=== PATIENT | male | born 1960 | race Caucasian/White ===

== ENCOUNTER 2019-01-25 19:58 | Inpatient (IN) | payer MEDICAID ==
[~2019-01-25] VITALS: Ht 167.6 cm; Wt 73.0 kg
[2019-01-25] MEDS ORDERED: ONDANSETRON INJ 8 MG in DEXTROSE 5% 50 ML IVPB STA (20:12)
[2019-01-25] MEDS ORDERED: PANTOPRAZOLE IV 80 MG in SOD CHLORIDE 0.9% 100 ML IV STA (20:12)
[2019-01-25] MEDS ORDERED: PANTOPRAZOLE IV 80 MG in SOD CHLORIDE 0.9% 100 ML IVPB STA (20:12)
[2019-01-25] MEDS ORDERED: OCTREOTIDE 500 MCG in SOD CHLORIDE 0.9% 49 ML IV STA (20:12)
[2019-01-25] MEDS ORDERED: OCTREOTIDE 50 MCG in SOD CHLORIDE 0.9% 25 ML IVPB STA (20:12)
[2019-01-25] MEDS ORDERED: SOD CHLORIDE 0.9% 1,000 ML IV STA (20:12)
[2019-01-25] MEDS ORDERED: SOD CHLORIDE 0.9% 1,000 ML IV ONE (20:30)
[2019-01-25] MEDS ORDERED: PHYTONADIONE 10 MG in DEXTROSE 5% 50 ML IVPB ONE (21:30)
[2019-01-25] MEDS ORDERED: EVAC CONTAINER IV ONE (21:30)
[2019-01-25] MEDS ORDERED: HUMAN PROTHROMBIN COMPLX IV ONE (21:30)
[2019-01-25] MEDS ORDERED: BISACODYL (EC) 5 MG TAB PO PRN (22:30)
[2019-01-25] MEDS ORDERED: ONDANSETRON 4 MG INJ IV PRN (22:30)
[2019-01-25] MEDS ORDERED: DESFLURANE 15 MIN ONE (22:30)
[2019-01-25] MEDS ORDERED: DOCUSATE SODIUM 100 MG CAP PO PRN (22:30)
[2019-01-25] MEDS ORDERED: ALBUTEROL 0.083% (NEB) 2.5 MG/3 ML AMP NEB PRN (22:30)
[2019-01-25] MEDS ORDERED: THIAMINE 200 MG INJ IV SCH (22:30)
[2019-01-25] MEDS ORDERED: SUCCINYLCHOLINE CHLORIDE 100 MG/5 ML SYG IV ONE (22:45)
[2019-01-25] MEDS ORDERED: ETOMIDATE 20 MG INJ ONE (22:45)
[2019-01-25] MEDS ORDERED: FENTAnyl 50 MCG/ML VIAL ONE (22:45)
[2019-01-25] MEDS ORDERED: PROPOFOL 20 ML ONE (22:45)
[2019-01-25] MEDS ORDERED: ONDANSETRON 4 MG INJ ONE (22:46)
[2019-01-25 23:59] VITALS: RESP 14
[2019-01-26] VITALS (87 sets, daily range): BP systolic 88–153; BP diastolic 53–93; PULSE 93–139; RESP 14–41
[2019-01-26] MEDS: THIAMINE 500 MG in SOD CHLORIDE 0.9% 100 ML IV SCH ×4 (00:57→21:29)
[2019-01-26] MEDS: SOD CHLORIDE 0.9% 1,000 ML IV SCH ×3 (00:58→21:29)
[2019-01-26] MEDS ORDERED: FUROSEMIDE 20 MG INJ IV ONE (01:11)
[2019-01-26] MEDS: OCTREOTIDE 1 MG in DEXTROSE 5% 95 ML IV SCH ×2 (02:21→21:29)
[2019-01-26] MEDS: PANTOPRAZOLE IV 80 MG in SOD CHLORIDE 0.9% 100 ML IV SCH ×3 (05:10→17:26)
[2019-01-26] MEDS ORDERED: ETOMIDATE 20 MG INJ IV ONE (05:30)
[2019-01-26] MEDS ORDERED: ROCURONIUM BROMIDE 10 MG/ML VIAL IV ONE (05:30)
[2019-01-26] MEDS ORDERED: ROCURONIUM 50 MG INJ ONE (05:30)
[2019-01-26] MEDS ORDERED: ETOMIDATE 20 MG INJ ONE (05:30)
[2019-01-26] MEDS ORDERED: PHYTONADIONE 10 MG in DEXTROSE 5% 50 ML IVPB ONE (07:30)
[2019-01-26] MEDS: MIDAZOLAM (DRIP) 50 mg/50 mL 50 ML IV SCH ×2 (07:52→21:30)
[2019-01-26] MEDS: FENTAnyl (DRIP) 1000 mcg/100mL 100 ML IV SCH (13:49)
[2019-01-26] MEDS ORDERED: THIAMINE 500 MG in SOD CHLORIDE 0.9% 100 ML IV SCH (16:00)
[2019-01-26] MEDS ORDERED: FUROSEMIDE 40 MG INJ IV ONE (18:30)
[2019-01-26] MEDS: ALBUMIN HUMAN 25% 100 ML IV SCH (18:39)
[2019-01-27] VITALS (52 sets, daily range): BP systolic 101–153; BP diastolic 50–90; PULSE 75–101; RESP 15–22; Ht 167.6 cm; Wt 73.0 kg
[2019-01-27] MEDS: PANTOPRAZOLE IV 80 MG in SOD CHLORIDE 0.9% 100 ML IV SCH ×3 (01:43→19:05)
[2019-01-27] MEDS: ALBUMIN HUMAN 25% 100 ML IV SCH ×2 (01:44→11:33)
[2019-01-27] MEDS: THIAMINE 500 MG in SOD CHLORIDE 0.9% 100 ML IV SCH ×3 (05:14→21:20)
[2019-01-27] MEDS: FENTAnyl (DRIP) 1000 mcg/100mL 100 ML IV SCH ×2 (05:18→07:58)
[2019-01-27] MEDS ORDERED: MAGNESIUM SULFATE 1 GM/D5W 100 ML IVPB ONE (08:30)
[2019-01-27] MEDS: POTASSIUM CHLORIDE 50 ML IVPB SCH ×2 (10:10→12:06)
[2019-01-27] MEDS: MIDAZOLAM (DRIP) 50 mg/50 mL 50 ML IV SCH ×2 (12:05→23:51)
[2019-01-27] MEDS ORDERED: LIDOCAINE 1% (MPF) 5 ML VIAL ONE (15:38)
[2019-01-27] MEDS: POTASSIUM CHLORIDE 100 ML IVPB SCH ×3 (17:00→21:19)
[2019-01-27] MEDS ORDERED: MAGNESIUM SULFATE 2 GM/50 ML 50 ML IVPB ONE (17:00)
[2019-01-27] MEDS: OCTREOTIDE 1 MG in DEXTROSE 5% 95 ML IV SCH (17:07)
[2019-01-27] MEDS: SOD CHLORIDE 0.9% 1,000 ML IV SCH (17:07)
[2019-01-28] VITALS (54 sets, daily range): BP systolic 85–122; BP diastolic 50–78; PULSE 76–102; RESP 14–34
[2019-01-28] MEDS: THIAMINE 500 MG in SOD CHLORIDE 0.9% 100 ML IV SCH ×3 (05:17→21:45)
[2019-01-28] MEDS: MIDAZOLAM (DRIP) 50 mg/50 mL 50 ML IV SCH ×2 (06:29→19:13)
[2019-01-28] MEDS: SOD CHLORIDE 0.9% 1,000 ML IV SCH ×3 (07:38→21:43)
[2019-01-28] MEDS ORDERED: SOD CHLORIDE 0.9% IVPB ONE (08:00)
[2019-01-28] MEDS ORDERED: POTASSIUM PHOSPHATE IVPB ONE (08:00)
[2019-01-28] MEDS: PANTOPRAZOLE IV 80 MG in SOD CHLORIDE 0.9% 100 ML IV SCH ×2 (09:05→19:13)
[2019-01-28] MEDS: OCTREOTIDE 1 MG in DEXTROSE 5% 95 ML IV SCH (13:15)
[2019-01-28] MEDS: DEXTROSE 5%-0.45% NACL 1,000 ML IV SCH (20:00)
[2019-01-28] MEDS ORDERED: GLUCOSE GEL 15 GRAM TUBE BUCCAL PRN (20:30)
[2019-01-28] MEDS ORDERED: GLUCAGON 1 MG INJ IM PRN (20:30)
[2019-01-28] MEDS ORDERED: GLUCOSE GEL 15 GRAM TUBE PO PRN ×2 (20:30)
[2019-01-28] MEDS ORDERED: DEXTROSE 50% 50 ML SYRINGE IV PRN ×2 (20:30)
[2019-01-28] MEDS ORDERED: INSULIN ASPART [NOVOLOG] 3 ML PEN SC SCH (21:00)
[2019-01-28] MEDS: FENTAnyl (DRIP) 1000 mcg/100mL 100 ML IV SCH ×2 (21:49)
[2019-01-29] VITALS (34 sets, daily range): BP systolic 92–134; BP diastolic 50–69; PULSE 72–94; RESP 12–24
[2019-01-29] MEDS: INSULIN ASPART [NOVOLOG] 3 ML PEN SC SCH ×6 (01:00→21:14)
[2019-01-29] MEDS ORDERED: ACCU-CHEK XX SCH (02:00)
[2019-01-29] MEDS: MIDAZOLAM (DRIP) 50 mg/50 mL 50 ML IV SCH ×3 (03:06→18:36)
[2019-01-29] MEDS: PANTOPRAZOLE IV 80 MG in SOD CHLORIDE 0.9% 100 ML IV SCH ×3 (04:10→21:05)
[2019-01-29] MEDS: THIAMINE 500 MG in SOD CHLORIDE 0.9% 100 ML IV SCH ×4 (05:13→21:05)
[2019-01-29] MEDS: OCTREOTIDE 1 MG in DEXTROSE 5% 95 ML IV SCH ×2 (09:32→21:05)
[2019-01-29] MEDS: DEXTROSE 5%-0.45% NACL 1,000 ML IV SCH ×2 (10:04→14:56)
[2019-01-29] MEDS: FENTAnyl (DRIP) 1000 mcg/100mL 100 ML IV SCH (12:19)
[2019-01-29] MEDS: LORAZEPAM 2 MG INJ IV PRN (13:55)
[2019-01-30] VITALS (35 sets, daily range): BP systolic 94–121; BP diastolic 56–77; PULSE 74–96; RESP 5–20
[2019-01-30] MEDS: MIDAZOLAM (DRIP) 50 mg/50 mL 50 ML IV SCH ×5 (00:13→19:34)
[2019-01-30] MEDS: FENTAnyl (DRIP) 1000 mcg/100mL 100 ML IV SCH ×3 (00:18→17:44)
[2019-01-30] MEDS: INSULIN ASPART [NOVOLOG] 3 ML PEN SC SCH ×6 (00:59→21:00)
[2019-01-30] MEDS: THIAMINE 500 MG in SOD CHLORIDE 0.9% 100 ML IV SCH ×3 (05:05→21:00)
[2019-01-30] MEDS: DEXTROSE 5%-0.45% NACL 1,000 ML IV SCH ×3 (05:05→20:59)
[2019-01-30] MEDS: PANTOPRAZOLE IV 80 MG in SOD CHLORIDE 0.9% 100 ML IV SCH (06:07)
[2019-01-30] MEDS ORDERED: ALBUMIN HUMAN 25% 100 ML IV ONE (15:30)
[2019-01-30] MEDS ORDERED: FUROSEMIDE 40 MG INJ IV ONE (15:30)
[2019-01-30] MEDS: PANTOPRAZOLE 40 MG INJ IV SCH (17:44)
[2019-01-31] VITALS (38 sets, daily range): BP systolic 80–121; BP diastolic 51–74; PULSE 54–85; RESP 14–19
[2019-01-31] MEDS: INSULIN ASPART [NOVOLOG] 3 ML PEN SC SCH ×6 (01:00→20:09)
[2019-01-31] MEDS: MIDAZOLAM (DRIP) 50 mg/50 mL 50 ML IV SCH ×3 (01:12→10:25)
[2019-01-31] MEDS: FENTAnyl (DRIP) 1000 mcg/100mL 100 ML IV SCH ×2 (04:55→17:03)
[2019-01-31] MEDS: PANTOPRAZOLE 40 MG INJ IV SCH ×2 (05:21→17:05)
[2019-01-31] MEDS: THIAMINE 500 MG in SOD CHLORIDE 0.9% 100 ML IV SCH ×3 (05:21→21:43)
[2019-01-31] MEDS: DEXMEDETOMIDINE IN DEXTROSE 5% 50 ML IV SCH ×2 (10:42→17:05)
[2019-01-31] MEDS ORDERED: MAGNESIUM SULFATE 3 GM in DEXTROSE 5% 100 ML IVPB ONE (11:00)
[2019-01-31] MEDS: POTASSIUM CHLORIDE 100 ML IVPB SCH ×2 (12:25→14:53)
[2019-01-31] MEDS ORDERED: LIDOCAINE 1% (MPF) 5 ML VIAL ONE (14:35)
[2019-01-31] MEDS ORDERED: ALBUMIN HUMAN 5% 250 ML IV ONE ×2 (16:30→19:00)
[2019-01-31] MEDS: DEXTROSE 5%-0.45% NACL 1,000 ML IV SCH (19:47)
[2019-01-31] MEDS ORDERED: ALBUMIN HUMAN 25% 100 ML ONE (20:50)
[2019-01-31] MEDS ORDERED: ALBUMIN HUMAN 25% 100 ML IV ONE (21:00)
[2019-01-31] MEDS ORDERED: SOD CHLORIDE 0.9% 250 ML IV ONE (21:00)
[2019-02-01] VITALS (46 sets, daily range): BP systolic 70–116; BP diastolic 49–70; PULSE 57–90; RESP 14–20
[2019-02-01] MEDS: INSULIN ASPART [NOVOLOG] 3 ML PEN SC SCH ×2 (01:00→04:30)
[2019-02-01] MEDS: THIAMINE 500 MG in SOD CHLORIDE 0.9% 100 ML IV SCH ×3 (05:06→21:43)
[2019-02-01] MEDS: PANTOPRAZOLE 40 MG INJ IV SCH ×2 (05:06→18:51)
[2019-02-01] MEDS ORDERED: ALBUMIN HUMAN 25% 100 ML ONE (06:51)
[2019-02-01] MEDS ORDERED: ALBUMIN HUMAN 25% 100 ML IV ONE (07:00)
[2019-02-01] MEDS ORDERED: NORepinephrine 8MG/250 ML (PMX 250 ML IV SCH (07:30)
[2019-02-01] MEDS ORDERED: SOD CHLORIDE 0.9% 1,000 ML IV ONE (10:30)
[2019-02-01] MEDS: DEXMEDETOMIDINE IN DEXTROSE 5% 50 ML IV SCH (18:59)
[2019-02-02] VITALS (38 sets, daily range): BP systolic 82–131; BP diastolic 54–83; PULSE 59–114; RESP 14–39
[2019-02-02] MEDS: FENTAnyl (DRIP) 1000 mcg/100mL 100 ML IV SCH ×2 (02:34→22:18)
[2019-02-02] MEDS: PANTOPRAZOLE 40 MG INJ IV SCH ×2 (05:18→17:06)
[2019-02-02] MEDS: THIAMINE 500 MG in SOD CHLORIDE 0.9% 100 ML IV SCH (05:21)
[2019-02-02] MEDS: DEXMEDETOMIDINE IN DEXTROSE 5% 50 ML IV SCH ×2 (17:07→22:07)
[2019-02-02] MEDS: LORAZEPAM 2 MG INJ IV PRN (18:51)
[2019-02-02] MEDS: DEXTROSE 5%-0.45% NACL 1,000 ML IV SCH (20:07)
[2019-02-03] VITALS (30 sets, daily range): BP systolic 91–169; BP diastolic 55–82; PULSE 54–138; RESP 14–38
[2019-02-03] MEDS: DEXMEDETOMIDINE IN DEXTROSE 5% 50 ML IV SCH (01:13)
[2019-02-03] MEDS: PANTOPRAZOLE 40 MG INJ IV SCH ×2 (06:11→17:32)
[2019-02-03] MEDS ORDERED: MAGNESIUM SULFATE 2 GM/50 ML 50 ML ONE (06:18)
[2019-02-03] MEDS ORDERED: MAGNESIUM SULFATE 2 GM/50 ML 50 ML IVPB ONE (06:30)
[2019-02-03] MEDS ORDERED: FUROSEMIDE 40 MG INJ IV ONE (10:30)
[2019-02-03] MEDS: LEVALBUTEROL (NEB) 0.63 MG/3 ML AMP HHN SCH ×3 (11:15→20:30)
[2019-02-03] MEDS: DEXTROSE 5%-0.45% NACL 1,000 ML IV SCH ×2 (12:00→21:40)
[2019-02-03] MEDS: PHYTONADIONE 10 MG in DEXTROSE 5% 50 ML IVPB SCH (12:28)
[2019-02-03] MEDS: LACTULOSE ENEMA 1,000 ML BTL PR SCH ×2 (12:30→17:30)
[2019-02-03] MEDS: IPRATROPIUM (NEB) 0.5 MG/2.5 ML AMP HHN SCH ×2 (15:15→20:30)
[2019-02-03] MEDS: PIPER-TAZO 3.375 GM IV (PMX) 100 ML IVPB SCH ×2 (17:32→23:48)
[2019-02-03] MEDS ORDERED: FUROSEMIDE 20 MG INJ IV ONE (21:00)
[2019-02-04] VITALS (53 sets, daily range): BP systolic 109–163; BP diastolic 56–105; PULSE 86–127; RESP 19–50
[2019-02-04] MEDS ORDERED: ACETAMINOPHEN 1000MG/100ML IV 100 ML IVPB ONE
[2019-02-04] MEDS: LACTULOSE ENEMA 1,000 ML BTL PR SCH ×5 (00:38→23:26)
[2019-02-04] MEDS: LEVALBUTEROL (NEB) 0.63 MG/3 ML AMP HHN SCH ×4 (02:51→19:25)
[2019-02-04] MEDS: PIPER-TAZO 3.375 GM IV (PMX) 100 ML IVPB SCH ×4 (06:08→23:24)
[2019-02-04] MEDS: PANTOPRAZOLE 40 MG INJ IV SCH ×2 (06:08→17:22)
[2019-02-04] MEDS: IPRATROPIUM (NEB) 0.5 MG/2.5 ML AMP HHN SCH ×3 (07:28→19:25)
[2019-02-04] MEDS: POTASSIUM CHLORIDE 100 ML IVPB SCH ×4 (09:13→17:23)
[2019-02-04] MEDS: PHYTONADIONE 10 MG in DEXTROSE 5% 50 ML IVPB SCH (09:13)
[2019-02-04] MEDS ORDERED: MAGNESIUM SULFATE 4 GM/100 ML 100 ML IVPB ONE (12:00)
[2019-02-04] MEDS: LORAZEPAM 2 MG INJ IV PRN (18:20)
[2019-02-04] MEDS ORDERED: FUROSEMIDE 40 MG INJ IV ONE (18:30)
[2019-02-04] MEDS: LEVETIRACETAM 1000 MG (PMX) 100 ML IVPB SCH (18:32)
[2019-02-04] MEDS ORDERED: LORAZEPAM 2 MG INJ IV PRN (23:00)
[2019-02-04] MEDS: DEXTROSE 5%-0.45% NACL 1,000 ML IV SCH (23:24)
[2019-02-05] VITALS (46 sets, daily range): BP systolic 120–164; BP diastolic 66–93; PULSE 108–120; RESP 23–58
[2019-02-05] MEDS: LEVALBUTEROL (NEB) 0.63 MG/3 ML AMP HHN SCH ×4 (02:03→19:17)
[2019-02-05] MEDS: PIPER-TAZO 3.375 GM IV (PMX) 100 ML IVPB SCH ×4 (06:06→23:29)
[2019-02-05] MEDS: PANTOPRAZOLE 40 MG INJ IV SCH ×2 (06:06→17:32)
[2019-02-05] MEDS: LACTULOSE ENEMA 1,000 ML BTL PR SCH ×3 (06:06→22:47)
[2019-02-05] MEDS: LEVETIRACETAM 1000 MG (PMX) 100 ML IVPB SCH ×2 (06:42→17:33)
[2019-02-05] MEDS: POTASSIUM CHLORIDE 50 ML IVPB SCH ×3 (07:40→11:23)
[2019-02-05] MEDS: IPRATROPIUM (NEB) 0.5 MG/2.5 ML AMP HHN SCH ×3 (08:22→19:17)
[2019-02-05] MEDS: PHYTONADIONE 10 MG in DEXTROSE 5% 50 ML IVPB SCH (08:39)
[2019-02-05] MEDS: DEXTROSE 5%-0.45% NACL 1,000 ML IV SCH (17:35)
[2019-02-06] VITALS (42 sets, daily range): BP systolic 82–167; BP diastolic 51–85; PULSE 85–129; RESP 16–47
[2019-02-06] MEDS: LEVALBUTEROL (NEB) 0.63 MG/3 ML AMP HHN SCH ×2 (01:28→08:00)
[2019-02-06] MEDS: LORAZEPAM 2 MG INJ IV PRN (01:58)
[2019-02-06] MEDS: PIPER-TAZO 3.375 GM IV (PMX) 100 ML IVPB SCH ×3 (05:30→17:24)
[2019-02-06] MEDS: LACTULOSE ENEMA 1,000 ML BTL PR SCH ×2 (05:31→13:49)
[2019-02-06] MEDS: PANTOPRAZOLE 40 MG INJ IV SCH ×2 (05:31→17:24)
[2019-02-06] MEDS: PROPOFOL 100 ML IV SCH ×3 (05:52→20:05)
[2019-02-06] MEDS: LEVETIRACETAM 1000 MG (PMX) 100 ML IVPB SCH ×2 (06:21→17:24)
[2019-02-06] MEDS: PHYTONADIONE 10 MG in DEXTROSE 5% 50 ML IVPB SCH (07:45)
[2019-02-06] MEDS: IPRATROPIUM (NEB) 0.5 MG/2.5 ML AMP HHN SCH (08:00)
[2019-02-06] MEDS: LEVALBUTEROL (HFA) 15 GM INHALER INH SCH ×2 (13:19→19:15)
[2019-02-06] MEDS: IPRATROPIUM (HFA) 12.9 GM INHALER INH SCH ×2 (13:20→19:15)
[2019-02-07] VITALS (59 sets, daily range): BP systolic 81–115; BP diastolic 45–63; PULSE 74–98; RESP 15–27
[2019-02-07] MEDS: PIPER-TAZO 3.375 GM IV (PMX) 100 ML IVPB SCH ×4 (00:20→17:17)
[2019-02-07] MEDS: LACTULOSE ENEMA 1,000 ML BTL PR SCH ×4 (00:41→17:19)
[2019-02-07] MEDS: IPRATROPIUM (HFA) 12.9 GM INHALER INH SCH ×4 (01:27→19:12)
[2019-02-07] MEDS: LEVALBUTEROL (HFA) 15 GM INHALER INH SCH ×4 (01:27→19:11)
[2019-02-07] MEDS: PANTOPRAZOLE 40 MG INJ IV SCH ×2 (05:40→17:17)
[2019-02-07] MEDS: LEVETIRACETAM 1000 MG (PMX) 100 ML IVPB SCH ×2 (05:40→18:03)
[2019-02-07] MEDS: PROPOFOL 100 ML IV SCH ×2 (05:41→15:43)
[2019-02-07] MEDS: POTASSIUM CHLORIDE 100 ML IVPB SCH ×3 (08:38→15:23)
[2019-02-07] MEDS ORDERED: FUROSEMIDE 40 MG INJ IV ONE (15:30)
[2019-02-07] MEDS: ALBUMIN HUMAN 25% 100 ML IV SCH (15:44)
[2019-02-08] VITALS (57 sets, daily range): BP systolic 73–115; BP diastolic 39–73; PULSE 53–93; RESP 15–25
[2019-02-08] MEDS: PIPER-TAZO 3.375 GM IV (PMX) 100 ML IVPB SCH ×5 (00:22→23:39)
[2019-02-08] MEDS: ALBUMIN HUMAN 25% 100 ML IV SCH ×2 (00:22→08:11)
[2019-02-08] MEDS: LACTULOSE ENEMA 1,000 ML BTL PR SCH ×3 (00:22→11:25)
[2019-02-08] MEDS: IPRATROPIUM (HFA) 12.9 GM INHALER INH SCH ×4 (01:29→19:17)
[2019-02-08] MEDS: LEVALBUTEROL (HFA) 15 GM INHALER INH SCH ×4 (01:29→19:17)
[2019-02-08] MEDS: PROPOFOL 100 ML IV SCH (03:31)
[2019-02-08] MEDS: PANTOPRAZOLE 40 MG INJ IV SCH ×2 (05:30→17:04)
[2019-02-08] MEDS ORDERED: POTASSIUM CHLORIDE 50 ML ONE (05:49)
[2019-02-08] MEDS: LEVETIRACETAM 1000 MG (PMX) 100 ML IVPB SCH ×2 (05:56→17:28)
[2019-02-08] MEDS ORDERED: POTASSIUM CHLORIDE 100 ML IVPB SCH (06:00)
[2019-02-08] MEDS: POTASSIUM CHLORIDE 50 ML IVPB SCH ×3 (06:24→10:44)
[2019-02-08] MEDS: DEXMEDETOMIDINE IN DEXTROSE 5% 50 ML IV SCH ×5 (09:14→23:39)
[2019-02-08] MEDS ORDERED: POTASSIUM PHOSPHATE 20 MEQ in SOD CHLORIDE 0.9% 250 ML IVPB ONE (10:30)
[2019-02-08] MEDS: LACTULOSE 30ML CUP NGT SCH ×3 (11:58→23:39)
[2019-02-08] MEDS ORDERED: FUROSEMIDE 40 MG INJ IV ONE (14:00)
[2019-02-08] MEDS ORDERED: ALBUMIN HUMAN 25% 100 ML IV ONE (14:00)
[2019-02-08] MEDS: POTASSIUM CHLORIDE 100 ML IVPB SCH ×2 (15:17→17:01)
[2019-02-08] MEDS: RIFAXIMIN 550 MG TAB NGT SCH (20:17)
[2019-02-08] MEDS: LORAZEPAM 2 MG INJ IV PRN (20:34)
[2019-02-08] MEDS ORDERED: SOD CHLORIDE 0.9% 1,000 ML IV ONE (22:30)
[2019-02-08] MEDS ORDERED: SOD CHLORIDE 0.9% 500 ML IV ONE (22:30)
[2019-02-09] VITALS (99 sets, daily range): BP systolic 68–172; BP diastolic 34–146; PULSE 44–97; RESP 18–32
[2019-02-09] MEDS ORDERED: SOD CHLORIDE 0.9% 1,000 ML IV ONE (01:00)
[2019-02-09] MEDS: LEVALBUTEROL (HFA) 15 GM INHALER INH SCH ×4 (01:31→19:09)
[2019-02-09] MEDS: IPRATROPIUM (HFA) 12.9 GM INHALER INH SCH ×4 (01:31→19:08)
[2019-02-09] MEDS ORDERED: NORepinephrine 8MG/250 ML (PMX 250 ML IV SCH (02:30)
[2019-02-09] MEDS ORDERED: DOPamine-D5W 1.6 MG/ML 250 ML IV SCH (03:00)
[2019-02-09] MEDS: PANTOPRAZOLE 40 MG INJ IV SCH ×2 (05:25→17:06)
[2019-02-09] MEDS: PIPER-TAZO 3.375 GM IV (PMX) 100 ML IVPB SCH ×3 (05:25→17:06)
[2019-02-09] MEDS: LACTULOSE 30ML CUP NGT SCH ×4 (05:27→21:14)
[2019-02-09] MEDS: LEVETIRACETAM 1000 MG (PMX) 100 ML IVPB SCH ×2 (06:06→17:06)
[2019-02-09] MEDS: RIFAXIMIN 550 MG TAB NGT SCH ×2 (09:00→16:02)
[2019-02-09] MEDS: POTASSIUM CHLORIDE 40 MEQ in DEXTROSE 5% 1,000 ML IV SCH (10:15)
[2019-02-09] MEDS: MIDAZOLAM 100 MG in SOD CHLORIDE 0.9% 80 ML IV SCH (10:19)
[2019-02-09] MEDS ORDERED: PHYTONADIONE 10 MG in DEXTROSE 5% 50 ML IVPB ONE (11:30)
[2019-02-09] MEDS ORDERED: LIDOCAINE 1% (MPF) 5 ML VIAL ONE (12:49)
[2019-02-09] MEDS ORDERED: FUROSEMIDE 40 MG INJ IV ONE (13:00)
[2019-02-09] MEDS ORDERED: ALBUMIN HUMAN 25% 100 ML IV ONE (13:00)
[2019-02-09] MEDS ORDERED: MAGNESIUM SULFATE 2 GM/50 ML 50 ML IVPB ONE (14:30)
[2019-02-09] MEDS ORDERED: POTASSIUM CHLORIDE 20 MEQ POWDER FOR ORAL SOLN PO PRN ×2 (15:30)
[2019-02-09] MEDS: POTASSIUM CHLORIDE 20 MEQ POWDER FOR ORAL SOLN PO PRN (16:02)
[2019-02-09] MEDS ORDERED: LACTULOSE 30ML CUP NGT SCH (22:00)
[2019-02-10] VITALS (52 sets, daily range): BP systolic 82–115; BP diastolic 43–66; PULSE 72–85; RESP 18–38
[2019-02-10] MEDS: PIPER-TAZO 3.375 GM IV (PMX) 100 ML IVPB SCH ×2 (00:28→05:22)
[2019-02-10] MEDS: LEVALBUTEROL (HFA) 15 GM INHALER INH SCH ×4 (01:00→20:28)
[2019-02-10] MEDS: IPRATROPIUM (HFA) 12.9 GM INHALER INH SCH ×4 (01:00→20:28)
[2019-02-10] MEDS: LACTULOSE 30ML CUP NGT SCH ×3 (05:22→21:32)
[2019-02-10] MEDS: PANTOPRAZOLE 40 MG INJ IV SCH ×2 (05:22→17:49)
[2019-02-10] MEDS: LEVETIRACETAM 1000 MG (PMX) 100 ML IVPB SCH ×2 (05:31→17:49)
[2019-02-10] MEDS: POTASSIUM CHLORIDE 40 MEQ in DEXTROSE 5% 1,000 ML IV SCH (06:19)
[2019-02-10] MEDS ORDERED: ALBUMIN HUMAN 25% 100 ML IV ONE (08:30)
[2019-02-10] MEDS ORDERED: FUROSEMIDE 40 MG INJ IV ONE (08:30)
[2019-02-10] MEDS: RIFAXIMIN 550 MG TAB NGT SCH ×2 (09:51→21:32)
[2019-02-10] MEDS: SPIRONOLACTONE 50 MG TAB NGT SCH (16:12)
[2019-02-10] MEDS: MIDAZOLAM 100 MG in SOD CHLORIDE 0.9% 80 ML IV SCH (17:39)
[2019-02-11] VITALS (40 sets, daily range): BP systolic 81–118; BP diastolic 47–71; PULSE 68–99; RESP 17–26
[2019-02-11] MEDS: LEVALBUTEROL (HFA) 15 GM INHALER INH SCH ×4 (01:27→19:10)
[2019-02-11] MEDS: IPRATROPIUM (HFA) 12.9 GM INHALER INH SCH ×4 (01:28→19:10)
[2019-02-11] MEDS: LEVETIRACETAM 1000 MG (PMX) 100 ML IVPB SCH ×2 (05:49→18:21)
[2019-02-11] MEDS: PANTOPRAZOLE 40 MG INJ IV SCH ×2 (05:49→18:21)
[2019-02-11] MEDS: LACTULOSE 30ML CUP NGT SCH ×2 (05:49→22:10)
[2019-02-11] MEDS: POTASSIUM CHLORIDE 20 MEQ POWDER FOR ORAL SOLN PO PRN ×2 (06:31→08:49)
[2019-02-11] MEDS ORDERED: MAGNESIUM SULFATE 2 GM/50 ML 50 ML IVPB ONE (08:30)
[2019-02-11] MEDS ORDERED: POTASSIUM PHOSPHATE 30 MM in SOD CHLORIDE 0.9% 250 ML IVPB ONE (08:30)
[2019-02-11] MEDS: FUROSEMIDE 20 MG TAB NGT SCH (08:49)
[2019-02-11] MEDS: RIFAXIMIN 550 MG TAB NGT SCH ×2 (08:50→20:50)
[2019-02-11] MEDS: SPIRONOLACTONE 50 MG TAB NGT SCH (08:50)
[2019-02-11] MEDS: BALSAM PERU/CASTOR OIL 60 GM TUBE TOP SCH (09:08)
[2019-02-11] MEDS ORDERED: POTASSIUM CHLORIDE 40 MEQ in DEXTROSE 5% 1,000 ML IV SCH (10:00)
[2019-02-11] MEDS ORDERED: ALBUMIN HUMAN 25% 100 ML ONE (15:10)
[2019-02-11] MEDS ORDERED: ALBUMIN HUMAN 25% 100 ML IV ONE (15:30)
[2019-02-12] VITALS (38 sets, daily range): BP systolic 90–130; BP diastolic 59–77; PULSE 79–99; RESP 19–27
[2019-02-12] MEDS: IPRATROPIUM (HFA) 12.9 GM INHALER INH SCH ×4 (01:36→19:32)
[2019-02-12] MEDS: LEVALBUTEROL (HFA) 15 GM INHALER INH SCH ×4 (01:36→19:32)
[2019-02-12] MEDS: PANTOPRAZOLE 40 MG INJ IV SCH ×2 (06:08→17:31)
[2019-02-12] MEDS: LEVETIRACETAM 1000 MG (PMX) 100 ML IVPB SCH ×2 (06:09→17:31)
[2019-02-12] MEDS: LACTULOSE 30ML CUP NGT SCH ×3 (06:09→22:09)
[2019-02-12] MEDS: RIFAXIMIN 550 MG TAB NGT SCH ×2 (08:41→20:18)
[2019-02-12] MEDS: FUROSEMIDE 20 MG TAB NGT SCH (08:41)
[2019-02-12] MEDS: SPIRONOLACTONE 50 MG TAB NGT SCH (08:41)
[2019-02-12] MEDS: BALSAM PERU/CASTOR OIL 60 GM TUBE TOP SCH (08:42)
[2019-02-12] MEDS ORDERED: INSULIN REGULAR, HUMAN 100 UNIT/1 ML 3ML VIAL IVP STA (08:44)
[2019-02-12] MEDS ORDERED: DEXTROSE 50% 50 ML SYRINGE IV PRN (09:00)
[2019-02-12] MEDS: MIDAZOLAM 100 MG in SOD CHLORIDE 0.9% 80 ML IV SCH ×2 (10:37→23:14)
[2019-02-13] VITALS (59 sets, daily range): BP systolic 82–141; BP diastolic 45–79; PULSE 77–110; RESP 15–27
[2019-02-13] MEDS: IPRATROPIUM (HFA) 12.9 GM INHALER INH SCH ×4 (01:43→19:18)
[2019-02-13] MEDS: LEVALBUTEROL (HFA) 15 GM INHALER INH SCH ×4 (01:43→19:18)
[2019-02-13] MEDS: PANTOPRAZOLE 40 MG INJ IV SCH ×2 (06:09→17:09)
[2019-02-13] MEDS: LEVETIRACETAM 1000 MG (PMX) 100 ML IVPB SCH ×2 (06:09→18:09)
[2019-02-13] MEDS: LACTULOSE 30ML CUP NGT SCH ×3 (06:09→21:00)
[2019-02-13] MEDS: RIFAXIMIN 550 MG TAB NGT SCH ×2 (08:39→20:50)
[2019-02-13] MEDS: SPIRONOLACTONE 50 MG TAB NGT SCH (08:39)
[2019-02-13] MEDS: DEXTROSE 5% 1,000 ML IV SCH (08:40)
[2019-02-13] MEDS: FUROSEMIDE 20 MG TAB NGT SCH (08:40)
[2019-02-13] MEDS: BALSAM PERU/CASTOR OIL 60 GM TUBE TOP SCH (08:40)
[2019-02-13] MEDS: MIDAZOLAM 100 MG in SOD CHLORIDE 0.9% 80 ML IV SCH (11:04)
[2019-02-13] MEDS ORDERED: DEXMEDETOMIDINE IN DEXTROSE 5% 50 ML IV SCH (11:30)
[2019-02-13] MEDS: DEXMEDETOMIDINE IN DEXTROSE 5% 50 ML IV SCH ×3 (14:01→21:00)
[2019-02-14] VITALS (57 sets, daily range): BP systolic 81–122; BP diastolic 45–77; PULSE 66–89; RESP 20–31
[2019-02-14] MEDS: LEVALBUTEROL (HFA) 15 GM INHALER INH SCH ×4 (01:11→19:26)
[2019-02-14] MEDS: IPRATROPIUM (HFA) 12.9 GM INHALER INH SCH ×4 (01:11→19:26)
[2019-02-14] MEDS: DEXMEDETOMIDINE IN DEXTROSE 5% 50 ML IV SCH ×4 (03:34→23:47)
[2019-02-14] MEDS: DEXTROSE 5% 1,000 ML IV SCH (03:38)
[2019-02-14] MEDS: LACTULOSE 30ML CUP NGT SCH ×3 (05:09→22:09)
[2019-02-14] MEDS: PANTOPRAZOLE 40 MG INJ IV SCH ×2 (05:09→18:20)
[2019-02-14] MEDS: LEVETIRACETAM 1000 MG (PMX) 100 ML IVPB SCH ×2 (05:09→18:20)
[2019-02-14] MEDS: FUROSEMIDE 20 MG TAB NGT SCH (09:00)
[2019-02-14] MEDS ORDERED: SOD CHLORIDE 0.9% 250 ML IV* ONE (09:08)
[2019-02-14] MEDS ORDERED: ALBUMIN HUMAN 25% 100 ML IV PRN (09:30)
[2019-02-14] MEDS: BALSAM PERU/CASTOR OIL 60 GM TUBE TOP SCH (09:46)
[2019-02-14] MEDS: RIFAXIMIN 550 MG TAB NGT SCH ×2 (09:46→22:09)
[2019-02-14] MEDS: SPIRONOLACTONE 50 MG TAB NGT SCH (09:46)
[2019-02-14] MEDS ORDERED: POTASSIUM CHLORIDE 20 MEQ POWDER FOR ORAL SOLN GTB ONE (10:00)
[2019-02-14] MEDS ORDERED: LIDOCAINE 1% (MPF) 5 ML VIAL ONE (13:56)
[2019-02-15] VITALS (50 sets, daily range): BP systolic 85–126; BP diastolic 58–79; PULSE 54–117; RESP 18–37
[2019-02-15] MEDS: IPRATROPIUM (HFA) 12.9 GM INHALER INH SCH ×4 (02:00→20:00)
[2019-02-15] MEDS: LEVALBUTEROL (HFA) 15 GM INHALER INH SCH ×4 (02:00→20:00)
[2019-02-15] MEDS: DEXTROSE 5% 1,000 ML IV SCH ×2 (03:12→21:06)
[2019-02-15] MEDS: DEXMEDETOMIDINE IN DEXTROSE 5% 50 ML IV SCH ×2 (03:55→12:18)
[2019-02-15] MEDS: PANTOPRAZOLE 40 MG INJ IV SCH (05:56)
[2019-02-15] MEDS: LACTULOSE 30ML CUP NGT SCH ×3 (05:56→22:00)
[2019-02-15] MEDS: LEVETIRACETAM 1000 MG (PMX) 100 ML IVPB SCH ×2 (05:57→18:31)
[2019-02-15] MEDS: SPIRONOLACTONE 50 MG TAB NGT SCH (08:19)
[2019-02-15] MEDS: RIFAXIMIN 550 MG TAB NGT SCH ×2 (08:19→21:00)
[2019-02-15] MEDS: BALSAM PERU/CASTOR OIL 60 GM TUBE TOP SCH (08:20)
[2019-02-15] MEDS: FUROSEMIDE 20 MG TAB NGT SCH (08:21)
[2019-02-15] MEDS: LORAZEPAM 2 MG INJ IV PRN (10:48)
[2019-02-15] MEDS: THIAMINE 100 MG TAB NGT SCH (11:12)
[2019-02-15] MEDS: ASCORBIC ACID 500 MG TAB NGT SCH (11:12)
[2019-02-15] MEDS: PIPER-TAZO 3.375 GM IV (PMX) 100 ML IVPB SCH ×3 (11:12→23:43)
[2019-02-15] MEDS: PROPOFOL 100 ML IV SCH (15:05)
[2019-02-15] MEDS ORDERED: FENTAnyl 50 MCG/ML VIAL ONE (16:06)
[2019-02-15] MEDS: PANTOPRAZOLE IV 80 MG in SOD CHLORIDE 0.9% 100 ML IV SCH (17:31)
[2019-02-15] MEDS: OCTREOTIDE 1 MG in DEXTROSE 5% 95 ML IV SCH (17:31)
[2019-02-16] VITALS (72 sets, daily range): BP systolic 85–114; BP diastolic 43–70; PULSE 69–115; RESP 21–35
[2019-02-16] MEDS: morphine 2 MG INJ IV PRN (01:12)
[2019-02-16] MEDS: LEVALBUTEROL (HFA) 15 GM INHALER INH SCH ×4 (01:47→19:57)
[2019-02-16] MEDS: IPRATROPIUM (HFA) 12.9 GM INHALER INH SCH ×4 (01:47→19:57)
[2019-02-16] MEDS: PANTOPRAZOLE IV 80 MG in SOD CHLORIDE 0.9% 100 ML IV SCH ×3 (02:53→22:26)
[2019-02-16] MEDS: PROPOFOL 100 ML IV SCH ×3 (05:16→21:30)
[2019-02-16] MEDS: PIPER-TAZO 3.375 GM IV (PMX) 100 ML IVPB SCH ×3 (05:29→17:22)
[2019-02-16] MEDS: LACTULOSE 30ML CUP NGT SCH ×3 (05:31→21:23)
[2019-02-16] MEDS: LEVETIRACETAM 1000 MG (PMX) 100 ML IVPB SCH ×2 (06:18→18:37)
[2019-02-16] MEDS: ASCORBIC ACID 500 MG TAB NGT SCH (08:39)
[2019-02-16] MEDS: THIAMINE 100 MG TAB NGT SCH (08:39)
[2019-02-16] MEDS: SPIRONOLACTONE 50 MG TAB NGT SCH (08:54)
[2019-02-16] MEDS: FUROSEMIDE 40 MG TAB NGT SCH (08:54)
[2019-02-16] MEDS: RIFAXIMIN 550 MG TAB NGT SCH ×2 (08:54→21:23)
[2019-02-16] MEDS: BALSAM PERU/CASTOR OIL 60 GM TUBE TOP SCH (08:55)
[2019-02-16] MEDS ORDERED: DEXTROSE 5%-0.45% NACL 1,000 ML IV SCH (09:30)
[2019-02-16] MEDS: OCTREOTIDE 1 MG in DEXTROSE 5% 95 ML IV SCH (09:48)
[2019-02-16] MEDS: PROPRANOLOL 10 MG TAB PO SCH ×2 (10:30→21:00)
[2019-02-16] MEDS: PHYTONADIONE 10 MG in DEXTROSE 5% 50 ML IVPB SCH (12:21)
[2019-02-16] MEDS: METOCLOPRAMIDE 10 MG INJ IV SCH ×2 (14:23→17:22)
[2019-02-16] MEDS ORDERED: LIDOCAINE 1% (MPF) 5 ML VIAL ONE (15:21)
[2019-02-17] VITALS (30 sets, daily range): BP systolic 87–137; BP diastolic 49–77; PULSE 58–78; RESP 19–27
[2019-02-17] MEDS: PIPER-TAZO 3.375 GM IV (PMX) 100 ML IVPB SCH ×4 (00:34→17:21)
[2019-02-17] MEDS: METOCLOPRAMIDE 10 MG INJ IV SCH ×4 (00:34→17:21)
[2019-02-17] MEDS: IPRATROPIUM (HFA) 12.9 GM INHALER INH SCH ×2 (01:41→08:13)
[2019-02-17] MEDS: LEVALBUTEROL (HFA) 15 GM INHALER INH SCH ×2 (01:41→08:12)
[2019-02-17] MEDS: LACTULOSE 30ML CUP NGT SCH ×3 (05:40→19:31)
[2019-02-17] MEDS: LEVETIRACETAM 1000 MG (PMX) 100 ML IVPB SCH ×2 (05:40→17:54)
[2019-02-17] MEDS: PHYTONADIONE 10 MG in DEXTROSE 5% 50 ML IVPB SCH ×3 (06:13→08:27)
[2019-02-17] MEDS: POTASSIUM CHLORIDE 100 ML IVPB SCH ×4 (06:15→13:16)
[2019-02-17] MEDS: OCTREOTIDE 1 MG in DEXTROSE 5% 95 ML IV SCH (06:42)
[2019-02-17] MEDS ORDERED: FUROSEMIDE 40 MG INJ IV ONE (07:00)
[2019-02-17] MEDS: ASCORBIC ACID 500 MG TAB NGT SCH (08:07)
[2019-02-17] MEDS: FUROSEMIDE 40 MG TAB NGT SCH (08:08)
[2019-02-17] MEDS: RIFAXIMIN 550 MG TAB NGT SCH ×2 (08:08→19:31)
[2019-02-17] MEDS: SPIRONOLACTONE 50 MG TAB NGT SCH (08:08)
[2019-02-17] MEDS: PROPRANOLOL 10 MG TAB PO SCH ×2 (08:08→19:31)
[2019-02-17] MEDS: THIAMINE 100 MG TAB NGT SCH (08:08)
[2019-02-17] MEDS: BALSAM PERU/CASTOR OIL 60 GM TUBE TOP SCH (08:09)
[2019-02-17] MEDS: PANTOPRAZOLE IV 80 MG in SOD CHLORIDE 0.9% 100 ML IV SCH ×2 (08:27→17:54)
[2019-02-17] MEDS: DEXTROSE 5%-0.45% NACL 1,000 ML IV SCH (12:22)
[2019-02-17] MEDS: LEVALBUTEROL (NEB) 0.63 MG/3 ML AMP HHN SCH ×2 (13:24→19:54)
[2019-02-17] MEDS: IPRATROPIUM (NEB) 0.5 MG/2.5 ML AMP HHN SCH ×2 (13:24→19:54)
[2019-02-18] VITALS (13 sets, daily range): BP systolic 109–149; BP diastolic 66–80; PULSE 62–91; RESP 17–26
[2019-02-18] MEDS: METOCLOPRAMIDE 10 MG INJ IV SCH ×4 (00:46→17:43)
[2019-02-18] MEDS: PIPER-TAZO 3.375 GM IV (PMX) 100 ML IVPB SCH ×3 (00:46→17:43)
[2019-02-18] MEDS: IPRATROPIUM (NEB) 0.5 MG/2.5 ML AMP HHN SCH ×4 (01:30→19:57)
[2019-02-18] MEDS: LEVALBUTEROL (NEB) 0.63 MG/3 ML AMP HHN SCH ×4 (01:31→20:00)
[2019-02-18] MEDS ORDERED: MAG SULFATE 2GM IN 50 ML IVPB ONE (09:00)
[2019-02-18] MEDS: THIAMINE 100 MG TAB NGT SCH (09:00)
[2019-02-18] MEDS: PROPRANOLOL 10 MG TAB PO SCH ×2 (09:00→21:00)
[2019-02-18] MEDS: FUROSEMIDE 40 MG TAB NGT SCH (09:00)
[2019-02-18] MEDS: RIFAXIMIN 550 MG TAB NGT SCH ×2 (09:00→21:00)
[2019-02-18] MEDS: PHYTONADIONE 10 MG in DEXTROSE 5% 50 ML IVPB SCH (09:00)
[2019-02-18] MEDS: SPIRONOLACTONE 50 MG TAB NGT SCH (09:00)
[2019-02-18] MEDS: ASCORBIC ACID 500 MG TAB NGT SCH (09:00)
[2019-02-18] MEDS ORDERED: POTASSIUM CHLORIDE 200 ML IVPB ONE (10:30)
[2019-02-18] MEDS: BALSAM PERU/CASTOR OIL 60 GM TUBE TOP SCH (12:30)
[2019-02-18] MEDS: LACTULOSE 30ML CUP NGT SCH ×2 (14:00→21:42)
[2019-02-18] MEDS: LEVETIRACETAM 1000 MG (PMX) 100 ML IVPB SCH ×2 (14:00→17:44)
[2019-02-18] MEDS: DEXTROSE 5%-0.45% NACL 1,000 ML IV SCH (14:14)
[2019-02-18] MEDS: PANTOPRAZOLE IV 80 MG in SOD CHLORIDE 0.9% 100 ML IV SCH ×2 (14:30→17:03)
[2019-02-19] VITALS (20 sets, daily range): BP systolic 101–167; BP diastolic 61–86; PULSE 88–103; RESP 13–30
[2019-02-19] MEDS: IPRATROPIUM (NEB) 0.5 MG/2.5 ML AMP HHN SCH ×4 (01:43→20:42)
[2019-02-19] MEDS: LEVALBUTEROL (NEB) 0.63 MG/3 ML AMP HHN SCH ×4 (01:43→20:42)
[2019-02-19] MEDS: PIPER-TAZO 3.375 GM IV (PMX) 100 ML IVPB SCH ×4 (03:41→18:03)
[2019-02-19] MEDS: METOCLOPRAMIDE 10 MG INJ IV SCH ×4 (03:41→18:03)
[2019-02-19] MEDS: PANTOPRAZOLE IV 80 MG in SOD CHLORIDE 0.9% 100 ML IV SCH ×2 (03:42→14:31)
[2019-02-19] MEDS: LACTULOSE 30ML CUP NGT SCH ×3 (06:00→22:00)
[2019-02-19] MEDS: LEVETIRACETAM 1000 MG (PMX) 100 ML IVPB SCH ×2 (06:09→18:35)
[2019-02-19] MEDS: THIAMINE 100 MG TAB NGT SCH (08:20)
[2019-02-19] MEDS: SPIRONOLACTONE 50 MG TAB NGT SCH (08:20)
[2019-02-19] MEDS: RIFAXIMIN 550 MG TAB NGT SCH ×2 (08:20→20:31)
[2019-02-19] MEDS: ASCORBIC ACID 500 MG TAB NGT SCH (08:20)
[2019-02-19] MEDS: PROPRANOLOL 10 MG TAB PO SCH ×2 (08:21→20:31)
[2019-02-19] MEDS: POTASSIUM CHLORIDE 50 ML IVPB SCH ×4 (08:45→14:28)
[2019-02-19] MEDS: BALSAM PERU/CASTOR OIL 60 GM TUBE TOP SCH (08:45)
[2019-02-19] MEDS: morphine 2 MG INJ IV PRN (08:51)
[2019-02-19] MEDS ORDERED: FUROSEMIDE 20 MG INJ IV SCH (09:00)
[2019-02-19] MEDS ORDERED: CALCIUM GLUCONATE 10% 1 GM in DEXTROSE 5% 100 ML IVPB ONE (09:30)
[2019-02-19] MEDS ORDERED: MAGNESIUM SULFATE 2 GM/50 ML 50 ML IVPB ONE (10:00)
[2019-02-19] MEDS: PHYTONADIONE 10 MG in DEXTROSE 5% 50 ML IVPB SCH (15:07)
[2019-02-19] MEDS: DEXTROSE 5% 1,000 ML IV SCH ×2 (15:09→20:32)
[2019-02-19] MEDS: PANTOPRAZOLE 40 MG INJ IV SCH (18:03)
[2019-02-20] VITALS (14 sets, daily range): BP systolic 119–152; BP diastolic 58–97; PULSE 53–94; RESP 15–20
[2019-02-20] MEDS: PIPER-TAZO 3.375 GM IV (PMX) 100 ML IVPB SCH ×4 (01:39→17:19)
[2019-02-20] MEDS: METOCLOPRAMIDE 10 MG INJ IV SCH ×4 (01:39→17:19)
[2019-02-20] MEDS: LEVALBUTEROL (NEB) 0.63 MG/3 ML AMP HHN SCH ×4 (02:10→19:41)
[2019-02-20] MEDS: IPRATROPIUM (NEB) 0.5 MG/2.5 ML AMP HHN SCH ×4 (02:10→19:41)
[2019-02-20] MEDS: LEVETIRACETAM 1000 MG (PMX) 100 ML IVPB SCH ×2 (06:20→18:05)
[2019-02-20] MEDS: PANTOPRAZOLE 40 MG INJ IV SCH ×2 (06:20→17:19)
[2019-02-20] MEDS: LACTULOSE 30ML CUP NGT SCH ×2 (06:20→20:54)
[2019-02-20] MEDS: BALSAM PERU/CASTOR OIL 60 GM TUBE TOP SCH ×2 (09:00→13:51)
[2019-02-20] MEDS: THIAMINE 100 MG TAB NGT SCH (09:05)
[2019-02-20] MEDS: RIFAXIMIN 550 MG TAB NGT SCH ×2 (09:05→20:54)
[2019-02-20] MEDS: ASCORBIC ACID 500 MG TAB NGT SCH (09:07)
[2019-02-20] MEDS: SPIRONOLACTONE 50 MG TAB NGT SCH (09:07)
[2019-02-20] MEDS: PROPRANOLOL 10 MG TAB PO SCH ×2 (09:07→20:54)
[2019-02-20] MEDS: FUROSEMIDE 20 MG INJ IV SCH (09:08)
[2019-02-20] MEDS: PHYTONADIONE 10 MG in DEXTROSE 5% 50 ML IVPB SCH (09:14)
[2019-02-20] MEDS ORDERED: POTASSIUM CHLORIDE 20 MEQ POWDER FOR ORAL SOLN NGT ONE (12:30)
[2019-02-20] MEDS ORDERED: MAGNESIUM SULFATE 2 GM/50 ML 50 ML IVPB ONE (12:30)
[2019-02-21] VITALS (12 sets, daily range): BP systolic 110–140; BP diastolic 62–74; PULSE 61–79; RESP 17–20
[2019-02-21] MEDS: METOCLOPRAMIDE 10 MG INJ IV SCH ×4 (01:28→17:39)
[2019-02-21] MEDS: PIPER-TAZO 3.375 GM IV (PMX) 100 ML IVPB SCH ×4 (01:28→17:40)
[2019-02-21] MEDS: IPRATROPIUM (NEB) 0.5 MG/2.5 ML AMP HHN SCH ×4 (01:37→19:41)
[2019-02-21] MEDS: LEVALBUTEROL (NEB) 0.63 MG/3 ML AMP HHN SCH ×4 (01:37→19:41)
[2019-02-21] MEDS: PANTOPRAZOLE 40 MG INJ IV SCH ×2 (06:14→17:39)
[2019-02-21] MEDS: LEVETIRACETAM 1000 MG (PMX) 100 ML IVPB SCH ×2 (06:15→17:40)
[2019-02-21] MEDS: ASCORBIC ACID 500 MG TAB NGT SCH (08:53)
[2019-02-21] MEDS: RIFAXIMIN 550 MG TAB NGT SCH ×2 (08:53→21:56)
[2019-02-21] MEDS: LACTULOSE 30ML CUP NGT SCH ×2 (08:53→21:55)
[2019-02-21] MEDS: THIAMINE 100 MG TAB NGT SCH (08:53)
[2019-02-21] MEDS: FUROSEMIDE 20 MG INJ IV SCH (08:54)
[2019-02-21] MEDS: SPIRONOLACTONE 50 MG TAB NGT SCH (08:54)
[2019-02-21] MEDS: PROPRANOLOL 10 MG TAB PO SCH ×2 (08:55→21:56)
[2019-02-22] VITALS (12 sets, daily range): BP systolic 106–151; BP diastolic 64–74; PULSE 58–76; RESP 17–20
[2019-02-22] MEDS: LEVALBUTEROL (NEB) 0.63 MG/3 ML AMP HHN SCH ×4 (01:27→19:39)
[2019-02-22] MEDS: IPRATROPIUM (NEB) 0.5 MG/2.5 ML AMP HHN SCH ×4 (01:27→19:39)
[2019-02-22] MEDS: METOCLOPRAMIDE 10 MG INJ IV SCH ×5 (01:39→23:46)
[2019-02-22] MEDS: PANTOPRAZOLE 40 MG INJ IV SCH ×2 (07:02→17:47)
[2019-02-22] MEDS: LEVETIRACETAM 1000 MG (PMX) 100 ML IVPB SCH ×2 (07:15→17:47)
[2019-02-22] MEDS: ASCORBIC ACID 500 MG TAB NGT SCH (08:08)
[2019-02-22] MEDS: LACTULOSE 30ML CUP NGT SCH ×2 (08:08→20:25)
[2019-02-22] MEDS: RIFAXIMIN 550 MG TAB NGT SCH ×2 (08:09→20:24)
[2019-02-22] MEDS: SPIRONOLACTONE 50 MG TAB NGT SCH (08:09)
[2019-02-22] MEDS: PROPRANOLOL 10 MG TAB PO SCH ×2 (08:09→20:24)
[2019-02-22] MEDS: THIAMINE 100 MG TAB NGT SCH (08:09)
[2019-02-22] MEDS: BALSAM PERU/CASTOR OIL 60 GM TUBE TOP SCH (08:10)
[2019-02-22] MEDS: FUROSEMIDE 20 MG INJ IV SCH ×2 (08:10→17:47)
[2019-02-22] MEDS ORDERED: POTASSIUM CHLORIDE 20 MEQ POWDER FOR ORAL SOLN NGT ONE (09:00)
[2019-02-23] VITALS (13 sets, daily range): BP systolic 112–153; BP diastolic 67–88; PULSE 73–82; RESP 18–19
[2019-02-23] MEDS: IPRATROPIUM (NEB) 0.5 MG/2.5 ML AMP HHN SCH ×4 (01:54→19:37)
[2019-02-23] MEDS: LEVALBUTEROL (NEB) 0.63 MG/3 ML AMP HHN SCH ×4 (01:54→19:37)
[2019-02-23] MEDS: PANTOPRAZOLE 40 MG INJ IV SCH ×2 (05:42→18:22)
[2019-02-23] MEDS: FUROSEMIDE 20 MG INJ IV SCH (05:43)
[2019-02-23] MEDS: METOCLOPRAMIDE 10 MG INJ IV SCH ×4 (05:43→23:57)
[2019-02-23] MEDS: LEVETIRACETAM 1000 MG (PMX) 100 ML IVPB SCH ×2 (06:00→18:23)
[2019-02-23] MEDS: LACTULOSE 30ML CUP NGT SCH ×2 (09:07→20:28)
[2019-02-23] MEDS: PROPRANOLOL 10 MG TAB PO SCH ×2 (09:07→20:29)
[2019-02-23] MEDS: THIAMINE 100 MG TAB NGT SCH (09:08)
[2019-02-23] MEDS: SPIRONOLACTONE 50 MG TAB NGT SCH (09:08)
[2019-02-23] MEDS: ASCORBIC ACID 500 MG TAB NGT SCH (09:08)
[2019-02-23] MEDS: RIFAXIMIN 550 MG TAB NGT SCH ×2 (09:08→20:29)
[2019-02-23] MEDS: BALSAM PERU/CASTOR OIL 60 GM TUBE TOP SCH (09:10)
[2019-02-23] MEDS: FUROSEMIDE 40 MG INJ IV SCH (18:22)
[2019-02-24] VITALS (12 sets, daily range): BP systolic 113–130; BP diastolic 67–79; PULSE 70–82; RESP 16–18
[2019-02-24] MEDS: LEVALBUTEROL (NEB) 0.63 MG/3 ML AMP HHN SCH ×4 (01:41→20:18)
[2019-02-24] MEDS: IPRATROPIUM (NEB) 0.5 MG/2.5 ML AMP HHN SCH ×4 (01:41→20:18)
[2019-02-24] MEDS: PANTOPRAZOLE 40 MG INJ IV SCH ×2 (05:07→18:56)
[2019-02-24] MEDS: METOCLOPRAMIDE 10 MG INJ IV SCH ×3 (05:07→18:56)
[2019-02-24] MEDS: FUROSEMIDE 40 MG INJ IV SCH ×2 (05:08→18:56)
[2019-02-24] MEDS: LEVETIRACETAM 1000 MG (PMX) 100 ML IVPB SCH ×2 (06:23→18:55)
[2019-02-24] MEDS ORDERED: MAGNESIUM SULFATE 2 GM/50 ML 50 ML IVPB ONE (07:30)
[2019-02-24] MEDS: LACTULOSE 30ML CUP NGT SCH ×2 (09:00→21:03)
[2019-02-24] MEDS: THIAMINE 100 MG TAB NGT SCH (09:00)
[2019-02-24] MEDS: BALSAM PERU/CASTOR OIL 60 GM TUBE TOP SCH (09:00)
[2019-02-24] MEDS: SPIRONOLACTONE 50 MG TAB NGT SCH (09:00)
[2019-02-24] MEDS: RIFAXIMIN 550 MG TAB NGT SCH ×2 (09:00→21:03)
[2019-02-24] MEDS: ASCORBIC ACID 500 MG TAB NGT SCH (09:00)
[2019-02-24] MEDS: PROPRANOLOL 10 MG TAB PO SCH ×2 (09:00→21:04)
[2019-02-25] VITALS (13 sets, daily range): BP systolic 98–128; BP diastolic 55–74; PULSE 77–111; RESP 16–22
[2019-02-25] MEDS: IPRATROPIUM (NEB) 0.5 MG/2.5 ML AMP HHN SCH ×4 (01:18→21:15)
[2019-02-25] MEDS: LEVALBUTEROL (NEB) 0.63 MG/3 ML AMP HHN SCH ×4 (01:18→21:15)
[2019-02-25] MEDS: LEVETIRACETAM 1000 MG (PMX) 100 ML IVPB SCH ×2 (05:53→17:45)
[2019-02-25] MEDS: METOCLOPRAMIDE 10 MG INJ IV SCH ×4 (05:53→17:37)
[2019-02-25] MEDS: PANTOPRAZOLE 40 MG INJ IV SCH ×2 (05:53→17:37)
[2019-02-25] MEDS: FUROSEMIDE 40 MG INJ IV SCH ×2 (05:54→17:45)
[2019-02-25] MEDS: ASCORBIC ACID 500 MG TAB NGT SCH (09:00)
[2019-02-25] MEDS: THIAMINE 100 MG TAB NGT SCH (09:00)
[2019-02-25] MEDS: RIFAXIMIN 550 MG TAB NGT SCH ×2 (09:00→21:52)
[2019-02-25] MEDS: SPIRONOLACTONE 50 MG TAB NGT SCH (09:00)
[2019-02-25] MEDS: PROPRANOLOL 10 MG TAB PO SCH ×2 (09:00→21:53)
[2019-02-25] MEDS: LACTULOSE 30ML CUP NGT SCH ×2 (17:37→21:54)
[2019-02-25] MEDS: BALSAM PERU/CASTOR OIL 60 GM TUBE TOP SCH (17:37)
[2019-02-26] VITALS (16 sets, daily range): BP systolic 101–126; BP diastolic 55–70; PULSE 86–109; RESP 18–40
[2019-02-26] MEDS: METOCLOPRAMIDE 10 MG INJ IV SCH ×5 (00:55→23:50)
[2019-02-26] MEDS: IPRATROPIUM (NEB) 0.5 MG/2.5 ML AMP HHN SCH ×4 (02:33→19:18)
[2019-02-26] MEDS: LEVALBUTEROL (NEB) 0.63 MG/3 ML AMP HHN SCH ×4 (02:33→19:19)
[2019-02-26] MEDS: PANTOPRAZOLE 40 MG INJ IV SCH (06:24)
[2019-02-26] MEDS: LEVETIRACETAM 1000 MG (PMX) 100 ML IVPB SCH ×2 (06:24→19:49)
[2019-02-26] MEDS: FUROSEMIDE 40 MG INJ IV SCH ×2 (06:24→18:08)
[2019-02-26] MEDS: LACTULOSE 30ML CUP NGT SCH ×2 (09:00→20:24)
[2019-02-26] MEDS ORDERED: MAGNESIUM SULFATE 2 GM/50 ML 50 ML IVPB ONE (09:30)
[2019-02-26] MEDS: THIAMINE 100 MG TAB NGT SCH (09:47)
[2019-02-26] MEDS: PROPRANOLOL 10 MG TAB PO SCH ×2 (09:47→20:25)
[2019-02-26] MEDS: BALSAM PERU/CASTOR OIL 60 GM TUBE TOP SCH (09:47)
[2019-02-26] MEDS: SPIRONOLACTONE 50 MG TAB NGT SCH (09:47)
[2019-02-26] MEDS: RIFAXIMIN 550 MG TAB NGT SCH ×2 (09:47→20:24)
[2019-02-26] MEDS: ASCORBIC ACID 500 MG TAB NGT SCH (09:47)
[2019-02-26] MEDS: PHYTONADIONE 10 MG/ML INJ SC SCH (10:10)
[2019-02-26] MEDS ORDERED: CEFTRIAXONE 2 GM INJ IVPB SCH (16:00)
[2019-02-26] MEDS ORDERED: PANTOPRAZOLE IV 80 MG in SOD CHLORIDE 0.9% 100 ML IVPB ONE (16:00)
[2019-02-26] MEDS: PANTOPRAZOLE IV 80 MG in SOD CHLORIDE 0.9% 100 ML IV SCH (19:48)
[2019-02-26] MEDS: OCTREOTIDE 500 MCG in DEXTROSE 5% 49 ML IV SCH (19:48)
[2019-02-26] MEDS ORDERED: CEFTRIAXONE 2 GM/50 ML (PMX) 50 ML IVPB SCH (20:00)
[2019-02-27] VITALS (41 sets, daily range): BP systolic 87–140; BP diastolic 48–85; PULSE 70–118; RESP 20–42
[2019-02-27] MEDS: LEVALBUTEROL (NEB) 0.63 MG/3 ML AMP HHN SCH ×4 (01:18→19:03)
[2019-02-27] MEDS: IPRATROPIUM (NEB) 0.5 MG/2.5 ML AMP HHN SCH ×4 (01:18→19:03)
[2019-02-27] MEDS: METOCLOPRAMIDE 10 MG INJ IV SCH ×4 (06:03→23:47)
[2019-02-27] MEDS: FUROSEMIDE 40 MG INJ IV SCH ×2 (06:04→18:00)
[2019-02-27] MEDS: LEVETIRACETAM 1000 MG (PMX) 100 ML IVPB SCH ×2 (06:04→18:04)
[2019-02-27] MEDS: PANTOPRAZOLE IV 80 MG in SOD CHLORIDE 0.9% 100 ML IV SCH ×3 (06:12→23:43)
[2019-02-27] MEDS: OCTREOTIDE 500 MCG in DEXTROSE 5% 49 ML IV SCH (07:24)
[2019-02-27] MEDS: DEXTROSE 5% 1,000 ML IV SCH (07:25)
[2019-02-27] MEDS: RIFAXIMIN 550 MG TAB NGT SCH ×2 (08:25→21:19)
[2019-02-27] MEDS: ASCORBIC ACID 500 MG TAB NGT SCH (08:25)
[2019-02-27] MEDS: LACTULOSE 30ML CUP NGT SCH ×4 (08:25→21:19)
[2019-02-27] MEDS: PROPRANOLOL 10 MG TAB PO SCH ×2 (08:25→21:00)
[2019-02-27] MEDS: BALSAM PERU/CASTOR OIL 60 GM TUBE TOP SCH (08:26)
[2019-02-27] MEDS: SPIRONOLACTONE 50 MG TAB NGT SCH (08:26)
[2019-02-27] MEDS: THIAMINE 100 MG TAB NGT SCH (08:26)
[2019-02-27] MEDS: PHYTONADIONE 10 MG/ML INJ SC SCH (08:26)
[2019-02-27] MEDS: MEROPENEM 500MG/50 ML (PMX) 50 ML IVPB SCH ×2 (14:50→21:19)
[2019-02-28] VITALS (64 sets, daily range): BP systolic 91–139; BP diastolic 50–85; PULSE 56–84; RESP 10–26
[2019-02-28] MEDS: PANTOPRAZOLE IV 80 MG in SOD CHLORIDE 0.9% 100 ML IV SCH ×2 (01:21→13:20)
[2019-02-28] MEDS: OCTREOTIDE 500 MCG in DEXTROSE 5% 49 ML IV SCH ×2 (01:21→21:43)
[2019-02-28] MEDS: DEXTROSE 5% 1,000 ML IV SCH (01:21)
[2019-02-28] MEDS: LEVALBUTEROL (NEB) 0.63 MG/3 ML AMP HHN SCH ×4 (01:23→19:41)
[2019-02-28] MEDS: IPRATROPIUM (NEB) 0.5 MG/2.5 ML AMP HHN SCH ×4 (01:23→19:41)
[2019-02-28] MEDS: FUROSEMIDE 40 MG INJ IV SCH ×2 (05:24→18:08)
[2019-02-28] MEDS: METOCLOPRAMIDE 10 MG INJ IV SCH ×3 (05:25→18:08)
[2019-02-28] MEDS: LEVETIRACETAM 1000 MG (PMX) 100 ML IVPB SCH ×2 (05:25→18:12)
[2019-02-28] MEDS: MEROPENEM 500MG/50 ML (PMX) 50 ML IVPB SCH ×3 (05:43→21:44)
[2019-02-28] MEDS ORDERED: MAGNESIUM SULFATE 2 GM/50 ML 50 ML IVPB ONE (06:30)
[2019-02-28] MEDS: SPIRONOLACTONE 50 MG TAB NGT SCH (09:25)
[2019-02-28] MEDS: POTASSIUM CHLORIDE 100 ML IVPB SCH ×3 (09:25→13:15)
[2019-02-28] MEDS: ASCORBIC ACID 500 MG TAB NGT SCH (09:25)
[2019-02-28] MEDS: LACTULOSE 30ML CUP NGT SCH ×3 (09:25→21:44)
[2019-02-28] MEDS: PROPRANOLOL 10 MG TAB PO SCH ×2 (09:25→21:44)
[2019-02-28] MEDS: THIAMINE 100 MG TAB NGT SCH (09:26)
[2019-02-28] MEDS: BALSAM PERU/CASTOR OIL 60 GM TUBE TOP SCH (09:26)
[2019-02-28] MEDS: RIFAXIMIN 550 MG TAB NGT SCH ×2 (09:26→21:44)
[2019-02-28] MEDS: PHYTONADIONE 10 MG/ML INJ SC SCH (09:26)
[2019-02-28] MEDS ORDERED: POTASSIUM CHLORIDE 100 ML IVPB SCH (21:00)
[2019-03-01] VITALS (23 sets, daily range): BP systolic 93–122; BP diastolic 56–81; PULSE 50–70; RESP 11–33
[2019-03-01] MEDS: DEXTROSE 5% 1,000 ML IV SCH ×2 (00:41→20:27)
[2019-03-01] MEDS: METOCLOPRAMIDE 10 MG INJ IV SCH ×4 (00:41→17:39)
[2019-03-01] MEDS: PANTOPRAZOLE IV 80 MG in SOD CHLORIDE 0.9% 100 ML IV SCH ×3 (00:56→15:57)
[2019-03-01] MEDS: LEVALBUTEROL (NEB) 0.63 MG/3 ML AMP HHN SCH ×4 (01:34→20:35)
[2019-03-01] MEDS: IPRATROPIUM (NEB) 0.5 MG/2.5 ML AMP HHN SCH ×4 (01:34→20:35)
[2019-03-01] MEDS: LEVETIRACETAM 1000 MG (PMX) 100 ML IVPB SCH ×2 (05:31→17:39)
[2019-03-01] MEDS: FUROSEMIDE 40 MG INJ IV SCH ×2 (05:31→17:39)
[2019-03-01] MEDS: MEROPENEM 500MG/50 ML (PMX) 50 ML IVPB SCH ×3 (05:31→20:31)
[2019-03-01] MEDS ORDERED: MAGNESIUM SULFATE 2 GM/50 ML 50 ML IVPB ONE (07:00)
[2019-03-01] MEDS: POTASSIUM CHLORIDE 100 ML IVPB SCH ×2 (07:29→09:04)
[2019-03-01] MEDS: LACTULOSE 30ML CUP NGT SCH ×3 (08:04→20:27)
[2019-03-01] MEDS: PROPRANOLOL 10 MG TAB PO SCH ×2 (08:05→20:26)
[2019-03-01] MEDS: SPIRONOLACTONE 50 MG TAB NGT SCH (08:05)
[2019-03-01] MEDS: ASCORBIC ACID 500 MG TAB NGT SCH (08:05)
[2019-03-01] MEDS: RIFAXIMIN 550 MG TAB NGT SCH ×2 (08:05→20:27)
[2019-03-01] MEDS: BALSAM PERU/CASTOR OIL 60 GM TUBE TOP SCH (08:06)
[2019-03-01] MEDS: THIAMINE 100 MG TAB NGT SCH (08:07)
[2019-03-01] MEDS ORDERED: LIDOCAINE 1% (MPF) 5 ML VIAL ONE (15:44)
[2019-03-01] MEDS: OCTREOTIDE 500 MCG in DEXTROSE 5% 49 ML IV SCH (15:47)
[2019-03-02] VITALS (36 sets, daily range): BP systolic 87–134; BP diastolic 54–72; PULSE 55–74; RESP 12–30
[2019-03-02] MEDS: PANTOPRAZOLE IV 80 MG in SOD CHLORIDE 0.9% 100 ML IV SCH ×3 (00:33→21:30)
[2019-03-02] MEDS: METOCLOPRAMIDE 10 MG INJ IV SCH ×4 (00:33→17:38)
[2019-03-02] MEDS: LEVALBUTEROL (NEB) 0.63 MG/3 ML AMP HHN SCH ×4 (01:17→19:21)
[2019-03-02] MEDS: IPRATROPIUM (NEB) 0.5 MG/2.5 ML AMP HHN SCH ×4 (01:17→19:21)
[2019-03-02] MEDS: FUROSEMIDE 40 MG INJ IV SCH ×2 (05:35→17:38)
[2019-03-02] MEDS: MEROPENEM 500MG/50 ML (PMX) 50 ML IVPB SCH ×3 (05:37→21:30)
[2019-03-02] MEDS: LEVETIRACETAM 1000 MG (PMX) 100 ML IVPB SCH ×2 (05:37→17:38)
[2019-03-02] MEDS: ASCORBIC ACID 500 MG TAB NGT SCH (09:00)
[2019-03-02] MEDS: RIFAXIMIN 550 MG TAB NGT SCH ×2 (09:00→21:30)
[2019-03-02] MEDS: PROPRANOLOL 10 MG TAB PO SCH ×2 (09:00→21:30)
[2019-03-02] MEDS: THIAMINE 100 MG TAB NGT SCH (09:00)
[2019-03-02] MEDS: BALSAM PERU/CASTOR OIL 60 GM TUBE TOP SCH (09:00)
[2019-03-02] MEDS: SPIRONOLACTONE 50 MG TAB NGT SCH (09:00)
[2019-03-02] MEDS: LACTULOSE 30ML CUP NGT SCH ×3 (09:00→21:30)
[2019-03-02] MEDS: DEXTROSE 5% 1,000 ML IV SCH (15:57)
[2019-03-03] VITALS (45 sets, daily range): BP systolic 95–131; BP diastolic 55–88; PULSE 59–81; RESP 14–29
[2019-03-03] MEDS: LEVALBUTEROL (NEB) 0.63 MG/3 ML AMP HHN SCH ×4 (01:07→19:53)
[2019-03-03] MEDS: IPRATROPIUM (NEB) 0.5 MG/2.5 ML AMP HHN SCH ×4 (01:07→19:53)
[2019-03-03] MEDS: METOCLOPRAMIDE 10 MG INJ IV SCH ×4 (05:30→18:48)
[2019-03-03] MEDS: MEROPENEM 500MG/50 ML (PMX) 50 ML IVPB SCH ×2 (05:30→13:03)
[2019-03-03] MEDS: FUROSEMIDE 40 MG INJ IV SCH ×2 (05:30→18:48)
[2019-03-03] MEDS: LEVETIRACETAM 1000 MG (PMX) 100 ML IVPB SCH ×2 (05:31→18:48)
[2019-03-03] MEDS: PANTOPRAZOLE IV 80 MG in SOD CHLORIDE 0.9% 100 ML IV SCH (09:02)
[2019-03-03] MEDS: RIFAXIMIN 550 MG TAB NGT SCH ×2 (09:54→20:39)
[2019-03-03] MEDS: THIAMINE 100 MG TAB NGT SCH (09:54)
[2019-03-03] MEDS: PROPRANOLOL 10 MG TAB PO SCH ×2 (09:54→20:39)
[2019-03-03] MEDS: SPIRONOLACTONE 50 MG TAB NGT SCH (09:54)
[2019-03-03] MEDS: LACTULOSE 30ML CUP NGT SCH ×3 (09:54→20:38)
[2019-03-03] MEDS: BALSAM PERU/CASTOR OIL 60 GM TUBE TOP SCH (09:55)
[2019-03-03] MEDS: ASCORBIC ACID 500 MG TAB NGT SCH (09:55)
[2019-03-03] MEDS: PANTOPRAZOLE 40 MG INJ IV SCH (18:48)
[2019-03-04] VITALS (24 sets, daily range): BP systolic 104–137; BP diastolic 58–99; PULSE 78–93; RESP 15–27
[2019-03-04] MEDS: METOCLOPRAMIDE 10 MG INJ IV SCH ×5 (00:07→23:54)
[2019-03-04] MEDS: LEVALBUTEROL (NEB) 0.63 MG/3 ML AMP HHN SCH ×4 (01:50→19:43)
[2019-03-04] MEDS: IPRATROPIUM (NEB) 0.5 MG/2.5 ML AMP HHN SCH ×4 (01:50→19:43)
[2019-03-04] MEDS: PANTOPRAZOLE 40 MG INJ IV SCH ×2 (05:14→17:22)
[2019-03-04] MEDS: FUROSEMIDE 40 MG INJ IV SCH ×2 (05:14→17:22)
[2019-03-04] MEDS: LEVETIRACETAM 1000 MG (PMX) 100 ML IVPB SCH (05:29)
[2019-03-04] MEDS ORDERED: MAGNESIUM SULFATE 2 GM/50 ML 50 ML IVPB ONE (09:00)
[2019-03-04] MEDS: LACTULOSE 30ML CUP NGT SCH ×3 (09:33→20:37)
[2019-03-04] MEDS: THIAMINE 100 MG TAB NGT SCH (09:33)
[2019-03-04] MEDS: ASCORBIC ACID 500 MG TAB NGT SCH (09:33)
[2019-03-04] MEDS: PROPRANOLOL 10 MG TAB PO SCH ×2 (09:33→20:38)
[2019-03-04] MEDS: RIFAXIMIN 550 MG TAB NGT SCH ×2 (09:34→20:38)
[2019-03-04] MEDS: BALSAM PERU/CASTOR OIL 60 GM TUBE TOP SCH (09:34)
[2019-03-04] MEDS: SPIRONOLACTONE 50 MG TAB NGT SCH (09:34)
[2019-03-04] MEDS: LEVETIRACETAM 500 MG TAB PEG SCH (20:38)
[2019-03-05] VITALS (13 sets, daily range): BP systolic 107–127; BP diastolic 59–73; PULSE 80–98; RESP 16–21
[2019-03-05] MEDS: LEVALBUTEROL (NEB) 0.63 MG/3 ML AMP HHN SCH ×4 (01:23→19:56)
[2019-03-05] MEDS: IPRATROPIUM (NEB) 0.5 MG/2.5 ML AMP HHN SCH ×4 (01:23→19:56)
[2019-03-05] MEDS: METOCLOPRAMIDE 10 MG INJ IV SCH ×3 (05:49→18:05)
[2019-03-05] MEDS: PANTOPRAZOLE 40 MG INJ IV SCH ×2 (05:49→18:05)
[2019-03-05] MEDS: FUROSEMIDE 40 MG INJ IV SCH ×2 (05:51→18:05)
[2019-03-05] MEDS: SPIRONOLACTONE 50 MG TAB NGT SCH (09:33)
[2019-03-05] MEDS: LEVETIRACETAM 500 MG TAB PEG SCH ×2 (09:35→21:36)
[2019-03-05] MEDS: THIAMINE 100 MG TAB NGT SCH (09:35)
[2019-03-05] MEDS: ASCORBIC ACID 500 MG TAB NGT SCH (09:35)
[2019-03-05] MEDS: PROPRANOLOL 10 MG TAB PO SCH ×2 (09:36→21:37)
[2019-03-05] MEDS: LACTULOSE 30ML CUP NGT SCH ×3 (09:38→21:36)
[2019-03-05] MEDS ORDERED: POTASSIUM CHLORIDE 20 MEQ POWDER FOR ORAL SOLN NGT ONE (10:00)
[2019-03-05] MEDS: BALSAM PERU/CASTOR OIL 60 GM TUBE TOP SCH (12:17)
[2019-03-05] MEDS: RIFAXIMIN 550 MG TAB NGT SCH ×2 (12:17→21:36)
[2019-03-06] VITALS (11 sets, daily range): BP systolic 95–120; BP diastolic 52–82; PULSE 75–87; RESP 1–19
[2019-03-06] MEDS: METOCLOPRAMIDE 10 MG INJ IV SCH ×5 (00:55→23:25)
[2019-03-06] MEDS: IPRATROPIUM (NEB) 0.5 MG/2.5 ML AMP HHN SCH ×4 (01:39→19:38)
[2019-03-06] MEDS: LEVALBUTEROL (NEB) 0.63 MG/3 ML AMP HHN SCH ×4 (01:39→19:38)
[2019-03-06] MEDS: PANTOPRAZOLE 40 MG INJ IV SCH ×2 (05:53→18:14)
[2019-03-06] MEDS: FUROSEMIDE 40 MG INJ IV SCH ×2 (05:54→18:14)
[2019-03-06] MEDS: SPIRONOLACTONE 50 MG TAB NGT SCH (09:02)
[2019-03-06] MEDS: LEVETIRACETAM 500 MG TAB PEG SCH ×2 (09:02→20:38)
[2019-03-06] MEDS: LACTULOSE 30ML CUP NGT SCH ×3 (09:02→20:39)
[2019-03-06] MEDS: RIFAXIMIN 550 MG TAB NGT SCH ×2 (09:03→20:38)
[2019-03-06] MEDS: ASCORBIC ACID 500 MG TAB NGT SCH (09:03)
[2019-03-06] MEDS: THIAMINE 100 MG TAB NGT SCH (09:03)
[2019-03-06] MEDS: PROPRANOLOL 10 MG TAB PO SCH ×2 (09:04→20:38)
[2019-03-06] MEDS: BALSAM PERU/CASTOR OIL 60 GM TUBE TOP SCH (09:04)
[2019-03-06] MEDS: [UNRECOGNIZED DRUG - REMARK] XX SCH (23:13)
[2019-03-07] VITALS (10 sets, daily range): BP systolic 94–136; BP diastolic 51–89; PULSE 75–87; RESP 16–20
[2019-03-07] MEDS: LEVALBUTEROL (NEB) 0.63 MG/3 ML AMP HHN SCH ×4 (01:20→20:17)
[2019-03-07] MEDS: IPRATROPIUM (NEB) 0.5 MG/2.5 ML AMP HHN SCH ×4 (01:20→20:17)
[2019-03-07] MEDS: METOCLOPRAMIDE 10 MG INJ IV SCH ×3 (06:32→17:57)
[2019-03-07] MEDS: PANTOPRAZOLE 40 MG INJ IV SCH ×2 (06:32→17:57)
[2019-03-07] MEDS: FUROSEMIDE 40 MG INJ IV SCH ×2 (06:32→18:05)
[2019-03-07] MEDS: [UNRECOGNIZED DRUG - REMARK] XX SCH ×3 (07:30→23:30)
[2019-03-07] MEDS: THIAMINE 100 MG TAB NGT SCH (09:09)
[2019-03-07] MEDS: SPIRONOLACTONE 50 MG TAB NGT SCH (09:09)
[2019-03-07] MEDS: LACTULOSE 30ML CUP NGT SCH ×3 (09:09→20:32)
[2019-03-07] MEDS: PROPRANOLOL 10 MG TAB PO SCH ×2 (09:09→20:33)
[2019-03-07] MEDS: ASCORBIC ACID 500 MG TAB NGT SCH (09:09)
[2019-03-07] MEDS: RIFAXIMIN 550 MG TAB NGT SCH ×2 (09:10→20:33)
[2019-03-07] MEDS: LEVETIRACETAM 500 MG TAB PEG SCH ×2 (09:10→20:33)
[2019-03-07] MEDS: BALSAM PERU/CASTOR OIL 60 GM TUBE TOP SCH (09:11)
[2019-03-08] VITALS (9 sets, daily range): BP systolic 99–126; BP diastolic 55–79; PULSE 89–103; RESP 17–20
[2019-03-08] MEDS: METOCLOPRAMIDE 10 MG INJ IV SCH ×4 (00:21→18:03)
[2019-03-08] MEDS: LEVALBUTEROL (NEB) 0.63 MG/3 ML AMP HHN SCH ×4 (02:02→19:18)
[2019-03-08] MEDS: IPRATROPIUM (NEB) 0.5 MG/2.5 ML AMP HHN SCH ×4 (02:02→19:18)
[2019-03-08] MEDS: PANTOPRAZOLE 40 MG INJ IV SCH ×2 (05:34→18:03)
[2019-03-08] MEDS: FUROSEMIDE 40 MG INJ IV SCH ×2 (05:34→18:04)
[2019-03-08] MEDS: [UNRECOGNIZED DRUG - REMARK] XX SCH ×3 (07:30→23:30)
[2019-03-08] MEDS: LACTULOSE 30ML CUP NGT SCH ×3 (09:20→21:14)
[2019-03-08] MEDS: RIFAXIMIN 550 MG TAB NGT SCH ×2 (09:20→21:15)
[2019-03-08] MEDS: ASCORBIC ACID 500 MG TAB NGT SCH (09:21)
[2019-03-08] MEDS: THIAMINE 100 MG TAB NGT SCH (09:21)
[2019-03-08] MEDS: LEVETIRACETAM 500 MG TAB PEG SCH ×2 (09:21→21:16)
[2019-03-08] MEDS: PROPRANOLOL 10 MG TAB PO SCH ×2 (09:21→21:00)
[2019-03-08] MEDS: SPIRONOLACTONE 50 MG TAB NGT SCH (09:21)
[2019-03-08] MEDS: BALSAM PERU/CASTOR OIL 60 GM TUBE TOP SCH (09:27)
[2019-03-08] MEDS ORDERED: ACETAMINOPHEN 650MG/20.3ML CUP GTB PRN (17:30)
[2019-03-09] VITALS (13 sets, daily range): BP systolic 78–143; BP diastolic 48–91; PULSE 86–129; RESP 18–23
[2019-03-09] MEDS: METOCLOPRAMIDE 10 MG INJ IV SCH ×4 (00:23→17:21)
[2019-03-09] MEDS: LEVALBUTEROL (NEB) 0.63 MG/3 ML AMP HHN SCH ×4 (01:11→19:27)
[2019-03-09] MEDS: IPRATROPIUM (NEB) 0.5 MG/2.5 ML AMP HHN SCH ×4 (01:11→19:27)
[2019-03-09] MEDS: PANTOPRAZOLE 40 MG INJ IV SCH ×2 (06:14→17:21)
[2019-03-09] MEDS: FUROSEMIDE 40 MG INJ IV SCH ×2 (06:14→17:21)
[2019-03-09] MEDS: [UNRECOGNIZED DRUG - REMARK] XX SCH ×3 (07:30→23:30)
[2019-03-09] MEDS: LEVETIRACETAM 500 MG TAB PEG SCH ×2 (08:59→21:00)
[2019-03-09] MEDS: THIAMINE 100 MG TAB NGT SCH (08:59)
[2019-03-09] MEDS: LACTULOSE 30ML CUP NGT SCH ×3 (08:59→21:00)
[2019-03-09] MEDS: RIFAXIMIN 550 MG TAB NGT SCH ×2 (08:59→21:00)
[2019-03-09] MEDS: SPIRONOLACTONE 50 MG TAB NGT SCH (08:59)
[2019-03-09] MEDS: BALSAM PERU/CASTOR OIL 60 GM TUBE TOP SCH (09:00)
[2019-03-09] MEDS: PROPRANOLOL 10 MG TAB PO SCH ×2 (09:01→21:00)
[2019-03-09] MEDS: ASCORBIC ACID 500 MG TAB NGT SCH (09:01)
[2019-03-09] MEDS ORDERED: IOHEXOL 14.3 MG(I)/ML (ADULT) BTL PO ONE (21:30)
[2019-03-09] MEDS ORDERED: ACETAMINOPHEN 1000MG/100ML IV 100 ML IVPB ONE (23:00)
[2019-03-09] MEDS ORDERED: VANCOMYCIN IV PER PHARMACY XX SCH (23:00)
[2019-03-09] MEDS ORDERED: NORepinephrine 8MG/250 ML (PMX 250 ML ONE (23:45)
[2019-03-09] MEDS: NORepinephrine 8MG/250 ML (PMX 250 ML IV SCH (23:58)
[2019-03-10] VITALS (68 sets, daily range): BP systolic 0–162; BP diastolic 0–150; PULSE 0–129; RESP 14–39
[2019-03-10] MEDS ORDERED: VANCOMYCIN 1.5 GM/NS 250 ML 250 ML IVPB SCH
[2019-03-10] MEDS: METOCLOPRAMIDE 10 MG INJ IV SCH ×3 (00:42→11:40)
[2019-03-10] MEDS: PIPER-TAZO 3.375 GM IV (PMX) 100 ML IVPB SCH ×3 (00:42→11:41)
[2019-03-10] MEDS ORDERED: ALBUMIN HUMAN 25% 100 ML IV ONE (01:00)
[2019-03-10] MEDS: LEVALBUTEROL (NEB) 0.63 MG/3 ML AMP HHN SCH (01:22)
[2019-03-10] MEDS: IPRATROPIUM (NEB) 0.5 MG/2.5 ML AMP HHN SCH (01:22)
[2019-03-10] MEDS ORDERED: FENTAnyl 1,000 MCG in SOD CHLORIDE 0.9% 80 ML IV SCH (03:00)
[2019-03-10] MEDS ORDERED: MIDAZOLAM 100 MG in SOD CHLORIDE 0.9% 80 ML IV SCH (03:00)
[2019-03-10] MEDS ORDERED: DEXTROSE 5%-0.45% NACL 1,000 ML IV SCH (03:00)
[2019-03-10] MEDS ORDERED: IOHEXOL 300MG/ML 150 ML BTL ONE (03:28)
[2019-03-10] MEDS ORDERED: SOD CHLORIDE 0.9% 100 ML ONE (03:28)
[2019-03-10] MEDS: NORepinephrine 8MG/250 ML (PMX 250 ML IV SCH ×3 (04:42→13:20)
[2019-03-10] MEDS ORDERED: NA BICARBONATE 8.4% 50 ML SYG IV ONE (04:55)
[2019-03-10] MEDS: FUROSEMIDE 40 MG INJ IV SCH (05:21)
[2019-03-10] MEDS: PANTOPRAZOLE 40 MG INJ IV SCH (05:21)
[2019-03-10] MEDS ORDERED: HYDROCORTISONE 100 MG INJ IV ONE (05:30)
[2019-03-10] MEDS ORDERED: ETOMIDATE 20 MG INJ ONE (07:00)
[2019-03-10] MEDS ORDERED: LIDOCAINE 100 MG SYRINGE ONE (07:00)
[2019-03-10] MEDS: LEVALBUTEROL (HFA) 15 GM INHALER INH SCH ×2 (08:00→14:31)
[2019-03-10] MEDS: IPRATROPIUM (HFA) 12.9 GM INHALER INH SCH ×2 (08:20→14:31)
[2019-03-10] MEDS: PROPRANOLOL 10 MG TAB PO SCH (08:55)
[2019-03-10] MEDS: LACTULOSE 30ML CUP NGT SCH ×3 (08:56→12:41)
[2019-03-10] MEDS: THIAMINE 100 MG TAB NGT SCH ×2 (08:56→09:00)
[2019-03-10] MEDS: LEVETIRACETAM 500 MG TAB PEG SCH ×2 (08:57→09:00)
[2019-03-10] MEDS: RIFAXIMIN 550 MG TAB NGT SCH ×2 (08:57→09:00)
[2019-03-10] MEDS: ASCORBIC ACID 500 MG TAB NGT SCH ×2 (08:57→09:00)
[2019-03-10] MEDS: PHENYLephrine 20MG IN 250 ML 250 ML IV SCH ×2 (09:09→13:20)
[2019-03-10] MEDS: BALSAM PERU/CASTOR OIL 60 GM TUBE TOP SCH (11:40)
[2019-03-10] MEDS ORDERED: LORAZEPAM 2 MG INJ IV PRN (16:00)
[2019-03-10] MEDS ORDERED: DIMETHICONE STICK TOP PRN (16:00)
[2019-03-10] MEDS ORDERED: SCOPOLAMINE 1.5 MG PATCH TRANSDERM SCH (16:00)
[2019-03-10] MEDS ORDERED: morphine 2 MG INJ IV PRN (16:00)
[2019-03-10] MEDS ORDERED: ARTIFICIAL TEARS 15 ML OPH BOTH EYES PRN (16:00)
[2019-03-10] MEDS ORDERED: morphine (DRIP) 100 MG/100 ML 100 ML IV SCH (17:00)
[2019-03-11] MEDS ORDERED: VANCOMYCIN 1 GM 250 ML IVPB SCH (03:00)
== END 2019-03-10 18:00 | disposition expired | DRG 368 ==
LOC: E/R 19:58 → REC 23:26 → EDBD 23:26 → ICU 01-26 00:21 → TEL 02-19 18:59 → ICU 02-26 17:22 → TEL 03-05 02:30 → ICU 03-09 23:43
PROVIDERS: ADMIT Family Medicine; ATTEND Internal Medicine
PROC: 06L34CZ Occlusion of Esophageal Vein with Extraluminal Device, Percutaneous Endoscopic Approach (ICD-10-PCS; principal; 2019-01-25)
PROC: 30233R1 Transfusion of Nonautologous Platelets into Peripheral Vein, Percutaneous Approach (ICD-10-PCS; 2019-01-25)
PROC: 30233N1 Transfusion of Nonautologous Red Blood Cells into Peripheral Vein, Percutaneous Approach (ICD-10-PCS; 2019-01-25)
PROC: 30233K1 Transfusion of Nonautologous Frozen Plasma into Peripheral Vein, Percutaneous Approach (ICD-10-PCS; 2019-01-25)
PROC: 5A1955Z Respiratory Ventilation, Greater than 96 Consecutive Hours (ICD-10-PCS; 2019-01-26)
PROC: 0BH18EZ Insertion of Endotracheal Airway into Trachea, Via Natural or Artificial Opening Endoscopic (ICD-10-PCS; 2019-01-26)
PROC: 0DJ08ZZ Inspection of Upper Intestinal Tract, Via Natural or Artificial Opening Endoscopic (ICD-10-PCS; 2019-01-26)
PROC: 0W9G3ZX Drainage of Peritoneal Cavity, Percutaneous Approach, Diagnostic (ICD-10-PCS; 2019-01-27)
PROC: 0W9G3ZX Drainage of Peritoneal Cavity, Percutaneous Approach, Diagnostic (ICD-10-PCS; 2019-01-31)
PROC: 5A1955Z Respiratory Ventilation, Greater than 96 Consecutive Hours (ICD-10-PCS; 2019-02-06)
PROC: 0W9G3ZZ Drainage of Peritoneal Cavity, Percutaneous Approach (ICD-10-PCS; 2019-02-09)
PROC: 0W9G3ZZ Drainage of Peritoneal Cavity, Percutaneous Approach (ICD-10-PCS; 2019-02-14)
PROC: 0DJ08ZZ Inspection of Upper Intestinal Tract, Via Natural or Artificial Opening Endoscopic (ICD-10-PCS; 2019-02-15)
PROC: 0W9G3ZZ Drainage of Peritoneal Cavity, Percutaneous Approach (ICD-10-PCS; 2019-02-16)
PROC: 0W9G3ZZ Drainage of Peritoneal Cavity, Percutaneous Approach (ICD-10-PCS; 2019-03-01)
PROC: 0DH63UZ Insertion of Feeding Device into Stomach, Percutaneous Approach (ICD-10-PCS; 2019-03-02)
PROC: 5A1935Z Respiratory Ventilation, Less than 24 Consecutive Hours (ICD-10-PCS; 2019-03-10)
DX: I85.01 Esophageal varices with bleeding (principal); J69.0 Pneumonitis due to inhalation of food and vomit; A41.9 Sepsis, unspecified organism; R65.21 Severe sepsis with septic shock; J96.01 Acute respiratory failure with hypoxia; G92 Toxic encephalopathy; N17.0 Acute kidney failure with tubular necrosis; Z99.11 Dependence on respirator [ventilator] status; E87.2 Acidosis; D68.9 Coagulation defect, unspecified; E87.0 Hyperosmolality and hypernatremia; K22.10 Ulcer of esophagus without bleeding; F10.10 Alcohol abuse, uncomplicated; I10 Essential (primary) hypertension; D64.9 Anemia, unspecified; K72.90 Hepatic failure, unspecified without coma; E87.8 Other disorders of electrolyte and fluid balance, not elsewhere classified; E83.51 Hypocalcemia; E87.6 Hypokalemia; R13.10 Dysphagia, unspecified; K70.31 Alcoholic cirrhosis of liver with ascites; D69.6 Thrombocytopenia, unspecified; K92.2 Gastrointestinal hemorrhage, unspecified; Z66 Do not resuscitate; R34 Anuria and oliguria; K83.8 Other specified diseases of biliary tract; B96.1 Klebsiella pneumoniae [K. pneumoniae] as the cause of diseases classified elsewhere; E83.42 Hypomagnesemia; K92.0 Hematemesis
CPT/HCPCS: 31500; 36415; 36430; 36573; 36600; 70450; 70551; 71045; 71250; 74018; 74176; 74177; 76705; 80048; 80053; 80069; 80076; 80307; 81001; 81003; 82042; 82043; 82140; 82550; 82553; 82803; 82962; 83605; 83615; 83690; 83735; 84100; 84132; 84145; 84155; 84157; 84300; 84484; 85014; 85018; 85025; 85049; 85610; 85670; 85730; 86644; 86850; 86900; 86901; 86920; 86945; 87070; 87081; 87086; 87102; 87116; 87205; 88104; 88305; 89051; 89220; 92526; 92610; 93005; 93306; 94002; 94003; 94640; 94660; 94664; 94668; 94770; 96365; 96375; 96376; 97110; 97162; 97530; C9113; J0131; J0610; J0696; J1265; J1720; J1815; J1940; J1953; J2001; J2060; J2185; J2250; J2270; J2354; J2370; J2405; J2543; J2724; J2765; J3010; J3370; J3411; J3475; J3480; J3490; J7030; J7040; J7042; J7050; J7070; P9016; P9035; P9045; P9047; P9059; Q9967